=== PATIENT | female | born 1945 | race Caucasian/White ===

== ENCOUNTER → 2019-01-07 08:00 | Outpatient (CLI) | payer MEDICARE ==
[2015-07-23 12:18] VITALS: BMI 41.6
[~2019-01-07 08:00] MED LIST: AZELASTINE137 MCG/0. NASAL; CYMBALTA60 MG PO; DOXYCYCLINE HY100 M2 PO; GLUCOPHAGE500 MG PO; K-TAB10 MEQ PO; KEFLEX500 MG PO; LASIX40 MG PO; LISINOPRIL5 MG PO; NORVASC5 MG PO; PRILOSEC20 MG PO; PROVENTIL HFA6.7 GM INH; SYNTHROID150 MCG PO; TRAZODONE HCL50 MG PO; VITAMIN D50000 UNIT PO
== END | disposition home or self-care (01) ==
LOC: D.LABREF 08:00
PROVIDERS: ATTEND Family Medicine
DX: Z51.81 Encounter for therapeutic drug level monitoring (principal); Z79.2 Long term (current) use of antibiotics

== ENCOUNTER → 2020-12-13 17:43 | Outpatient (CLI) | payer MEDICARE ==
[2015-07-23 12:18] VITALS: BMI 41.6
[2020-12-13 18:26] LABS: BILIRUBIN NEGATIVE (NEGATIVE); KETONE NEGATIVE (NEGATIVE); NITRITE NEGATIVE (NEGATIVE); UROBILINOGEN NORMAL mg/dL (< 2)
== END | disposition home or self-care (01) ==
LOC: D.LABREF 17:43
PROVIDERS: ATTEND Family Medicine
DX: N39.0 Urinary tract infection, site not specified (principal)

== ENCOUNTER → 2020-12-25 18:54 | Outpatient (CLI) | payer MEDICARE ==
[2015-07-23 12:18] VITALS: BMI 41.6
[2020-12-25 19:21] LABS: BASOPHILS 0.6 % (0-2); EOSINOPHILS 2.6 % (0-7); HEMATOCRIT 38.7 % (36.0-48.0); HEMOGLOBIN 12.1 g/dL (12-16); IMMATURE GRANULOCYTES 0.6 % (0-5); LYMPHOCYTE ABS# 2.61 10x3/uL (1.18-3.74); LYMPHOCYTES 29.8 % (15-50); MCH 27.8 pg (26.0-34.0); MCHC 31.3 g/dL (31.0-37.0); MCV 88.8 fL (80.0-100.0); MONOCYTES 10.5 % (2-11); NEUTROPHIL ABS# 4.91 10x3/uL (1.56-6.13); NEUTROPHILS 55.9 % (40-80); RBC 4.36 10x6/uL (4.00-5.40); RDW 14.8 % (11.5-14.5); WBC 8.8 10x3/uL (4.8-10.8)
[2020-12-25 19:23] LABS: PLATELET COUNT 275 10x3/uL (130-400)
[2020-12-25 20:12] LABS: ALBUMIN 2.7 g/dL (3.4-5.0); ANION GAP 9.6 mmol/L (8-16); BILIRUBIN - TOTAL 0.4 mg/dL (0.2-1.3); CALCIUM 8.6 mg/dL (8.5-10.1); CARBON DIOXIDE 30.1 mmol/L (21.0-32.0); CREATININE - SERUM 1.2 mg/dL (0.6-1.3); MAGNESIUM - SERUM 2.2 mg/dL (1.8-2.4); POTASSIUM - SERUM 4.7 mmol/L (3.5-5.1); PROTEIN - SERUM 6.7 g/dL (6.4-8.2)
[2020-12-25 20:22] LABS: % SATURATION 8 % (15-55); IRON 24 ug/dl (35-150); TOTAL IRON BIND CAPACITY 277 ug/dl (260-445); UNSAT IRON BIND CAPACITY 253 ug/dl (150-375)
[2020-12-25 20:39] LABS: ERYTHROCYTE SEDIMENTATION RATE 35 mm/hr (0-30)
== END | disposition home or self-care (01) ==
LOC: D.LABREF 18:54
PROVIDERS: ATTEND Family Medicine
DX: R53.83 Other fatigue (principal)

== ENCOUNTER → 2021-01-21 18:06 | Outpatient (CLI) | payer MEDICARE ==
[2015-07-23 12:18] VITALS: BMI 41.6
== END | disposition home or self-care (01) ==
LOC: D.LABREF 18:06
PROVIDERS: ATTEND Family Medicine
DX: E11.9 Type 2 diabetes mellitus without complications (principal)

== ENCOUNTER → 2021-02-04 17:00 | Outpatient (CLI) | payer MEDICARE ==
[2015-07-23 12:18] VITALS: BMI 41.6
[2021-02-04 17:35] LABS: BILIRUBIN NEGATIVE (NEGATIVE); KETONE NEGATIVE (NEGATIVE); NITRITE NEGATIVE (NEGATIVE); UROBILINOGEN NORMAL mg/dL (< 2)
== END | disposition home or self-care (01) ==
LOC: D.LABREF 17:00
PROVIDERS: ATTEND Family Medicine
DX: R30.0 Dysuria (principal); R39.81 Functional urinary incontinence

== ENCOUNTER → 2021-02-21 17:08 | Outpatient (CLI) | payer MEDICARE ==
[2015-07-23 12:18] VITALS: BMI 41.6
[2021-02-21 18:17] LABS: EOSINOPHILS 3.9 % (0-7); HEMATOCRIT 39.7 % (36.0-48.0); HEMOGLOBIN 12.9 g/dL (12-16); LYMPHOCYTES 17.8 % (15-50); MCH 27.5 pg (26.0-34.0); MCHC 32.6 g/dL (31.0-37.0); MCV 84.4 fL (80.0-100.0); MEAN PLATELET VOLUME 8.2 fL (7.4-10.4); MONOCYTES 10.3 % (2-11); WBC 12.1 10x3/uL (4.8-10.8)
[2021-02-21 18:29] LABS: PLATELET COUNT 355 10x3/uL (130-400)
[2021-02-21 18:38] LABS: ALBUMIN 3.3 g/dL (3.4-5.0); ANION GAP 16.1 mmol/L (8-16); BILIRUBIN - TOTAL 0.25 mg/dL (0.2-1.3); CALCIUM 9.1 mg/dL (8.5-10.1); CARBON DIOXIDE 24.3 mmol/L (21.0-32.0); CREATININE - SERUM 1.3 mg/dL (0.6-1.3); POTASSIUM - SERUM 5.4 mmol/L (3.5-5.1); PROTEIN - SERUM 8.1 g/dL (6.4-8.2)
[2021-02-21 19:15] LABS: ERYTHROCYTE SEDIMENTATION RATE 56 mm/hr (0-30)
== END | disposition home or self-care (01) ==
LOC: D.LABREF 17:08
PROVIDERS: ATTEND Family Medicine
DX: R53.83 Other fatigue (principal); E11.9 Type 2 diabetes mellitus without complications

== ENCOUNTER → 2021-02-24 17:38 | Outpatient (CLI) | payer MEDICARE ==
[2015-07-23 12:18] VITALS: BMI 41.6
[2021-02-24 18:34] LABS: ANION GAP 15.8 mmol/L (8-16); CARBON DIOXIDE 26.1 mmol/L (21.0-32.0); CREATININE - SERUM 1.4 mg/dL (0.6-1.3); POTASSIUM - SERUM 4.9 mmol/L (3.5-5.1)
== END | disposition home or self-care (01) ==
LOC: D.LABREF 17:38
PROVIDERS: ATTEND Family Medicine
DX: E86.0 Dehydration (principal)

== ENCOUNTER → 2021-02-27 16:00 | Outpatient (CLI) | payer MEDICARE ==
[2015-07-23 12:18] VITALS: BMI 41.6
[2021-02-27 18:28] LABS: ANION GAP 12.2 mmol/L (8-16); CALCIUM 8.5 mg/dL (8.5-10.1); CARBON DIOXIDE 29.4 mmol/L (21.0-32.0); CREATININE - SERUM 1.4 mg/dL (0.6-1.3); POTASSIUM - SERUM 4.6 mmol/L (3.5-5.1)
== END | disposition home or self-care (01) ==
LOC: D.LABREF 16:00
PROVIDERS: ATTEND Family Medicine
DX: R30.0 Dysuria (principal); E78.5 Hyperlipidemia, unspecified

== ENCOUNTER → 2021-03-10 18:36 | Outpatient (CLI) | payer MEDICARE ==
[2015-07-23 12:18] VITALS: BMI 41.6
[2021-03-10 18:57] LABS: BASOPHILS 1.1 % (0-2); EOSINOPHILS 2.7 % (0-7); HEMATOCRIT 36.9 % (36.0-48.0); LYMPHOCYTES 19.4 % (15-50); MCH 27.8 pg (26.0-34.0); MCHC 32.6 g/dL (31.0-37.0); MCV 85.2 fL (80.0-100.0); MEAN PLATELET VOLUME 8.5 fL (7.4-10.4); MONOCYTES 11.5 % (2-11); NEUTROPHILS 65.3 % (40-80); PLATELET COUNT 307 10x3/uL (130-400); RBC 4.33 10x6/uL (4.00-5.40); RDW 16.3 % (11.5-14.5); WBC 10.1 10x3/uL (4.8-10.8)
[2021-03-10 19:09] LABS: ALBUMIN 3.2 g/dL (3.4-5.0); ANION GAP 14.1 mmol/L (8-16); BILIRUBIN - TOTAL 0.32 mg/dL (0.2-1.3); CALCIUM 8.9 mg/dL (8.5-10.1); CARBON DIOXIDE 27.4 mmol/L (21.0-32.0); CREATININE - SERUM 1.5 mg/dL (0.6-1.3); POTASSIUM - SERUM 4.5 mmol/L (3.5-5.1); PROTEIN - SERUM 7.5 g/dL (6.4-8.2)
== END | disposition home or self-care (01) ==
LOC: D.LABREF 18:36
PROVIDERS: ATTEND Family Medicine
DX: R06.02 Shortness of breath (principal); E78.5 Hyperlipidemia, unspecified